=== PATIENT | male | born 1955 | race Caucasian/White ===

== ENCOUNTER 2021-09-12 07:55 | Day surgery (SDC) | payer MEDICARE, OTHER | END 2021-09-12 23:37 | disposition home or self-care (01) | LOC: CT 07:55 | DX: R07.89 Other chest pain (principal); I25.10 Atherosclerotic heart disease of native coronary artery without angina pectoris; I10 Essential (primary) hypertension; E78.5 Hyperlipidemia, unspecified; Z88.0 Allergy status to penicillin | CPT/HCPCS: 75574; Q9967 ==